=== PATIENT | male | born 1970 | race Caucasian/White ===

== ENCOUNTER 2017-03-04 12:02 | Emergency (ER) | payer OTHER ==
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
[2017-03-04] MEDS ORDERED: PRILOSEC (12:18)
== END 2017-03-04 13:59 | disposition home or self-care (01) ==
LOC: SED 12:02
DX: S93.402A Sprain of unspecified ligament of left ankle, initial encounter (principal); S50.11XA Contusion of right forearm, initial encounter; L25.9 Unspecified contact dermatitis, unspecified cause; K21.9 Gastro-esophageal reflux disease without esophagitis; Z79.899 Other long term (current) drug therapy; V86.59XA Driver of other special all-terrain or other off-road motor vehicle injured in nontraffic accident, initial encounter; Y92.410 Unspecified street and highway as the place of occurrence of the external cause
CPT/HCPCS: 29075; 73590; 90471; 90715; 96372; 99283; J1100